=== PATIENT | male | born 1955 | race Caucasian/White ===

== ENCOUNTER → 2016-10-18 | Outpatient (CLI) | payer OTHER ==
[2016-10-18 13:53] LABS: ANION GAP 16.2 MEQ/L (3-15); MAGNESIUM* 2.4 mg/dL (1.6-2.3)
== END ==
LOC: LAB 13:09
PROVIDERS: ATTEND Internal Medicine Cardiovascular Disease
DX: I50.33 Acute on chronic diastolic (congestive) heart failure (principal)
CPT/HCPCS: 36415; 80048; 83735

== ENCOUNTER → 2017-01-24 | Outpatient (REF) | payer MEDICAID, OTHER ==
[2017-01-24 16:12] LABS: ALBUMIN 4.4 g/dL (3.4-5.0); ANION GAP 16.7 MEQ/L (3-15); TOTAL PROTEIN 7.8 g/dL (6.4-8.5)
== END ==
LOC: LAB 15:44
PROVIDERS: ATTEND Family Medicine
DX: E78.4 Other hyperlipidemia (principal)
CPT/HCPCS: 80053; 80061